=== PATIENT | female | born 1950 | race Caucasian/White ===

== ENCOUNTER 2017-06-08 15:58 | Observation (INO) ==
[2017-06-08] MEDS ORDERED: ROCEPHIN 1 GM in SODIUM CHLORIDE 50 ML IV STA ×2 (16:22→20:57)
--- NOTE | 2017-06-08 16:50 | DI ---
EXAM: Chest two view, frontal and lateral views. HISTORY: Cough. COMPARISON: 06/20/2013. FINDINGS: Heart size is normal. There is no vascular congestion. There are thin linear opacities i n the right apex which appear new from prior study. Lungs otherwise clear without pleural effusion o r pneumothorax. No acute osseous abnormality identified. Right convex lower thoracic curvature note d. Clips seen in the upper abdomen. IMPRESSION: Linear opacities in the right apex are suggestive of scarring, although follow-up in 3 months recomme nded for reassessment.
[2017-06-08] MEDS ORDERED: SODIUM CHLORIDE 500 ML IV STA (17:11)
--- NOTE | 2017-06-08 17:14 | ED.PDOC ---
General ED Provider: Dr. YARELY HERNANDEZ Chief Complaint: Arrhythmia Stated Complaint: WEAKNESS Time Seen by Physician: 16:00 (SEEN WITH STAFF AT ALL TIMES ) Mode of Arrival: Wheelchair Information Source: Patient, Nurse Exam Limitations: No limitations Primary Care Provider: BHARAT BOWMAN Nursing and Triage Documentation Reviewed and Agree: Yes (SEEN WITH RAY/ kana at all times ) Reviewed sepsis parameters & appropriate labs ordered?: Yes (NO SYNCOPE REPORTED ) System Inflammatory Response Syndrome: Not Applicable Sepsis Protocol: For patient's 13 years and over: Temp is 96.8 and below OR 101 and greater Pulse >90 BPM Resp >20/minute Acutely Altered Mental Status Are patient's symptoms suggestive of a new infection, such as: -Pneumonia -Skin, Soft Tissue -Endocarditis -UTI -Bone, Joint Infection -Implantable Device -Acute Abdominal Infection -Wound Infection -Meningitis -Blood Stream Catheter Infection -Unknown System Inflammatory Response Syndrome: Not Applicable Neurological Complaint Exam - Weakness Complaint/Exam Last Known Well: WEEK AGO Onset: Gradual Duration: 1 WEEK Symptoms Are: Still present Timing: Intermittent Episodes Lasting: Hours Initial Severity: Moderate Current Severity: None Character: Reports: Lightheaded, Weak Aggravating: Reports: None Alleviating: Reports: None Associated Signs and Symptoms: Denies: Nausea, Vomiting, Diaphoresis, Tinnitus, Chest pain, Short of air, Palpitations, Unsteady gait, GI blood loss, Visual changes, Decreased oral intake, Change in medication, Change in diet, OTC meds, Loss of balance Cardiac Risk Factors: Reports: Elevated lipids CVA Risk Factors: Reports: None JVD Present: No Carotid Bruit Present: No Nystagmus Present: No Gag Reflex Present: Yes Meningeal Signs Positive: No Focal Weakness: Present: None Focal Sensory Loss: Present: None Gait: Normal Romberg Test Positive: No Babinski Sign: Negative Left Differential Diagnoses: Dysrhythmia, Hypovolemia, GI Bleed Quality Indicators for Cardiac Chest Pain: EKG in 10min. Quality Indicators for AMI: EKG in 10min. Quality Indicator For Non-Traumatic Chest Pain/Syncope: EKG Performed Review of Systems - Review Of Systems Constitutional: Reports: Malaise, Weakness Eyes: Reports: No symptoms Ears, Nose, Mouth, Throat: Reports: No symptoms Respiratory: Reports: Cough Cardiac: Reports: Lightheadedness, Palpitations GI: Reports: No symptoms : Reports: No symptoms Musculoskeletal: Reports: No symptoms Skin: Reports: No symptoms Neurological: Reports: No symptoms Endocrine: Reports: No symptoms Hematologic/Lymphatic: Reports: No symptoms All Other Systems: Reviewed and Negative Past Medical History - Past Medical History Previously Healthy: No Endocrine: Reports: Dyslipidemia Cardiovascular: Reports: None, Hypertension Respiratory: Reports: None Hematological: Reports: None Gastrointestinal: Reports: None Genitourinary: Reports: None Neuro/Psych: Reports: None Musculoskeletal: Reports: None Cancer: Reports: None Last Menstrual Period: na - Surgical History General Surgical History: Reports: Cholecystectomy - Family History Family History: Reports: None - Social History Smoking Status: Current every day smoker Hx Substance Use: No Alcohol Screening: None - Immunizations Tetanus Shot up to Date: Yes Physical Exam - Physical Exam Appearance: Well-appearing, No pain distress, Well-nourished Eyes: MELISSA, EOMI, Conjunctiva clear ENT: Ears normal, Nose normal, Oropharynx normal Respiratory: Airway patent, Breath sounds clear, Breath sounds equal, Respirations nonlabored Cardiovascular: RRR, Pulses normal, No rub, No murmur GI/: Soft, Nontender, No masses, Bowel sounds normal, No Organomegaly Musculoskeletal: Normal strength, ROM intact, No edema, No calf tenderness Skin: Warm, Dry, Normal color Neurological: Sensation intact, Motor intact, Reflexes intact, Cranial nerves intact, Alert, Oriented Psychiatric: Affect appropriate, Mood appropriate Physician Notification - Case Discussed Physician Notified: PMD Time of Notification: 17:16 Admit To: Observation Critical Care Note - Critical Care Note Total Time (mins): 0 Course - Course Orders, Labs, Meds: Lab Review 06/08/17 06/08/17 15:38 15:38 Total Creatine Kinase 61 Troponin I 0.0100 Procalcitonin < 0.05 Orders Category Date Time Status EKG-(ED ONLY) Stat CARDIO 06/08/17 16:04 Completed Neuro Check [NEUROLOGICAL CHECKS] Q4HR CARE 06/08/17 17:11 Active BLOOD CULTURE (ED ONLY) Stat LAB 06/08/17 16:37 Received CREATINE KINASE Stat LAB 06/08/17 15:38 Completed FLU A/B MOLECULAR Stat LAB 06/08/17 16:21 Uncollected MOLECULAR GROUP A STREP Stat LAB 06/08/17 16:21 Uncollected PROCALCITONIN Stat LAB 02/16/18 15:38 Completed TROPONIN I Stat LAB 06/08/17 15:38 Completed Aspirin [Aspirin EC] MEDS 06/09/17 09:00 Ordered 81 mg PO DAILY Atorvastatin Calcium [Lipitor] MEDS 06/09/17 09:00 Ordered 20 mg PO DAILY Sodium Chloride 0.9% [Sodium Chloride] 500 ml MEDS 06/08/17 17:11 Active IV 100 mls/hr CHEST, 2 VIEWS PA & LAT Stat RADS 06/08/17 16:06 Completed Medications Generic Name Dose Route Start Last Admin Trade Name Angelo PRN Reason Stop Dose Admin Aspirin 81 mg 06/09/17 09:00 Aspirin Ec PO DAILY ADILSON Atorvastatin Calcium 20 mg 06/09/17 09:00 Lipitor PO DAILY ADILSON Sodium Chloride 500 mls @ 100 mls/hr 06/08/17 17:11 Sodium Chloride IV 06/08/17 22:10 .Q5H STA Vital Signs: Temp Pulse Resp BP Pulse Ox 06/08/17 15:59 97.7 F 72 16 157/92 H 96 Departure - Departure Time of Disposition: 17:16 (seen all labs and imaging,XRAYS DISCUSSED WITH PT' S DAUGHTER PRESENT kana /RAY ) Disposition: PLACED OBSERVATION Discharge Problem: Weakness generalized Instructions: Weakness (ED) Condition: Good Pt referred to PMD for follow-up: Yes (ADMITT) IPMP verified?: No Additional Instructions: Please call your Family Physician as soon as possible to schedule a follow-up appointment. Allergies/Adverse Reactions: Allergies sulfamethoxazole [From Bactrim] Allergy (Severe, Unverified 06/08/17 15:17) Abdominal pain trimethoprim [From Bactrim] Allergy (Severe, Unverified 06/08/17 15:17) Abdominal pain Home Medications: Ambulatory Orders Aspirin [Aspir 81] 81 mg PO DAILY 06/08/17 Atorvastatin Calcium [Lipitor] 20 mg PO DAILY 06/08/17 Calcium Carbonate [Calcium] 500 mg PO DAILY 06/08/17 Ranitidine HCl [Zantac] 150 mg PO BID 06/08/17 Disposition Discussed With: Patient, Family
[2017-06-08] MEDS ORDERED: VISTARIL INJ IM PRN (18:20)
[2017-06-08] MEDS ORDERED: ZOFRAN 4 MG/2 ML IVP STA (18:20)
[2017-06-08] MEDS ORDERED: MORPHINE 4 MG/ML VIAL IVP PRN (18:20)
[2017-06-08] MEDS ORDERED: TYLENOL PO PRN (18:20)
[2017-06-08] MEDS ORDERED: ATROPINE SULFATE PFS IVP PRN (18:20)
[2017-06-08] MEDS ORDERED: NITROSTAT SL PRN (18:20)
[2017-06-08] MEDS ORDERED: TORADOL IVP STA (18:24)
[2017-06-08] MEDS ORDERED: DECADRON 4 MG/ML SDV IM STA (18:25)
[2017-06-08] MEDS ORDERED: TRAMADOL HCL 50 MG PO PRN (18:27)
[2017-06-08 18:51] VITALS: BMI 18.2
[2017-06-08] MEDS ORDERED: ZANTAC ONE (19:59)
[2017-06-08] MEDS ORDERED: ANCEF ONE (21:04)
[2017-06-08] MEDS: SODIUM CHLORIDE 0.9%-KCL 20 MEQ 1,000 ML IV SCH (21:24)
[2017-06-08] MEDS: POTASSIUM CHLORIDE 10 MEQ VIAL-ADDITIVE ONLY IV SCH (21:25)
[2017-06-08] MEDS: K-DUR PO SCH (21:25)
[2017-06-09] MEDS: POTASSIUM CHLORIDE 10 MEQ VIAL-ADDITIVE ONLY IV SCH (07:15)
[2017-06-09] MEDS ORDERED: POTASSIUM CHLORIDE 10 MEQ VIAL-ADDITIVE ONLY 10 MEQ in SODIUM CHLORIDE 0.9%-KCL 20 MEQ ... IV SCH ×4 (07:30)
[2017-06-09] MEDS ORDERED: ASPIRIN EC PO SCH ×2 (08:00)
[2017-06-09] MEDS ORDERED: ZOFRAN 4 MG/2 ML ONE (08:42)
[2017-06-09] MEDS ORDERED: NON-FORMULARY MEDICATION (Calcium Carbonate [Calcium] 500 MG) PO SCH (09:00)
[2017-06-09] MEDS ORDERED: LIPITOR PO SCH (09:00)
[2017-06-09] MEDS: K-DUR PO SCH (09:26)
[2017-06-09] MEDS: ZOFRAN 4 MG/2 ML IVP SCH ×2 (09:28→13:43)
[2017-06-09] MEDS: SODIUM CHLORIDE 0.9%-KCL 20 MEQ 1,000 ML IV SCH (09:47)
[2017-06-09] MEDS ORDERED: ANCEF 1 GM in SODIUM CHLORIDE 100 ML IV ONE (11:00)
[2017-06-09] MEDS ORDERED: ROCEPHIN 1 GM in SODIUM CHLORIDE 50 ML IV ONE (11:00)
[2017-06-09 13:27] VITALS: BP 110/55; TEMP 98.3
--- NOTE | 2017-06-11 10:17 | ECHO2D ---
Date of Exam: 06/09/17 Ordering Physician: DR. BHARAT BOWMAN Room #: 109 Reason for Echo: WEAKNESS, ARRHYTHMIA M-Mode Normal Adult Results LV Dimensions Normal Adult Results AoV Opening excursions >1.6 >1.6 LVEDD-base- 3.5-5.8 4.6 Ao root dimensions 2.0-3.7 3.8 LVESD-base- 3.1-4.6 L. Atrium dimensions 1.9-3.8 3.9 Post. Wall thickness 0.8-1.1 0.9 IV septum (thickness) 0.7-1.2 1.0 Post. Wall excursion 0.72-1.3 NORMAL Septal motion NORMAL Systolic motion R. Ventricular cavity 1.5-2.0 NORMAL LVEF 60% 50% Paradoxical septal wall motion NORMAL 2-D : 2-D M Mode Echocardiogram was performed using apical four chamber and left parasternal long and short axis views. Mitral, tricuspid and aortic valves appear to be normal. Contractility of the left ventricle seems to be normal, so is the cavity size. Left atrial cavity size and aortic root appear to be normal. There is no pericardial effusion. There is no thrombus noted in the left ventricular or left aortic cavity. No mitral valve prolapse noted. M-MODE: MV: NORMAL AV: NORMAL TV: NORMAL PV: CHAMBER SIZE: NORMAL WALL MOTION: NORMAL PERICARDIUM: NORMAL INTERPRETATION: 1. NORMAL 2 "D" "M" MODE ECHO MTDD
--- NOTE | 2017-06-11 14:49 | HP ---
DATE OF SERVICE: 06/08/17 SUBJECTIVE: This 66-year-old female was wheeled into the emergency room by Vandana Talley as she was seen in the [facility] for having flu type of symptoms. The patient also reported as having some palpitations with shortness of breath. The patient has flu type of symptoms for the past couple of weeks. Her daughter advised her to seek medical help. She went to the [facility]. After listening to the patient's history, Vandana Talley wheeled the patient into the emergency room for further workup. The patient was investigated by the ER physician and he found the CBC, CMP, chest x-ray were all normal. Because of jesus patient's weakness, fatigue and flu type of symptoms with poor appetite, the patient was hospitalized under observation. REVIEW OF SYSTEMS: CONSTITUTIONAL: Fatigue and weakness. The patient ran fever a couple of days ago and then now subsided. No night sweats. No malaise, lethargy. No fever or chills. HEENT: Eyes: No visual changes. No eye pain. No eye discharge. ENT: No runny nose. No epistaxis. No sinus pain. No sore throat. No odynophagia. No congestion. RESPIRATORY: Mild cough, no congestion. No hemoptysis. No shortness of breath. CARDIOVASCULAR: No angina symptoms. No CHF symptoms. No atypical chest pain for CAD. Palpitations. No PND, no orthopnea. GASTROINTESTINAL: Appetite is not good for the past 2 to 3 days. No abdominal pain. No nausea or vomiting. No diarrhea or constipation. No hematemesis. No hematochezia. GENITOURINARY: No urgency. No frequency. No dysuria. No hematuria. No obstructive symptoms. No discharge. No pain. No significant abnormal bleeding. MUSCULOSKELETAL: Generalized aches and pains. NEUROLOGICAL: No headache. No neck pain. No syncope. No seizures. No dizziness. PSYCHIATRIC: Not anxious. No depression. No suicidal thoughts. No homicidal thoughts. SKIN: No rash. No lesions. No wounds. ENDOCRINE: No unexplained weight loss. No weight gain. HEMATOLOGIC/LYMPHATIC: No anemia. No purpura. No petechiae. No prolonged or excessive bleeding. No palpable lymph nodes. MEDICATIONS: Tramadol Zantac ALLERGIES: SULFAMETHOXAZOLE, TRIMETHOPRIM PAST MEDICAL HISTORY: Chronic lung disease Smoking Gastroesophageal reflux disease Generalized osteoarthritis PERSONAL/FAMILY/SOCIAL HISTORY: The patient is living by herself. She is a smoker. No alcohol abuse. She does all activity of daily living. 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 PHYSICAL EXAMINATION: GENERAL: The patient is oriented to time, place and person. Mucous membranes are dry. VITAL SIGNS: Temperature 98, pulse 80, respiratory rate 15, BP 130/70. HEENT: Head normocephalic, atraumatic. Eyes: Extraocular muscles are intact. Pupils are equal, round and reactive to light and accommodation. Ears: No lesions. Nose appeared normal. Throat: No exudate or erythema. NECK: Supple. No JVD, no carotid bruit. No lymphadenopathy or thyromegaly. LUNGS: Decreased breath sounds bilaterally. Clear to auscultation. Percussion note normal. Chest symmetrical. HEART: S1, S2, no S3. No murmurs. No cyanosis or clubbing. No ascites. Pulses: Dorsalis pedis and posterior tibial pulses +1 to +2 both sides. ABDOMEN: Soft. Nontender. Bowel sounds active. No CVA tenderness. No mass felt. EXTREMITIES: No edema. Full range of motion of all extremities, equal. NEUROLOGIC: No focal deficit. Cranial nerves II through XII are grossly intact. No headache, no double vision or headache. SKIN: Dry. Intact. Turgor - normal. LYMPHATIC: No palpable lymph nodes/no lymphedema. MUSCULOSKELETAL: Normal joints with no swelling. Muscle tone is normal. LABS: Creatinine, BUN, CBC with differential, chest x-ray all negative. EKG sinus rhythm, no acute changes. Telemetry - sinus rhythm. No arrhythmias. ASSESSMENT: 1. Flu type of symptoms with dehydration clinically 2. COPD with smoking PLAN: 1. Admit the patient 2. Give IV fluids 3. Zofran as needed 4. Continue all the home medications 5. Toradol 30 mg now and q.8hr 6. 1 cc Decadron IM 7. Telemetry 8. EKG 9. Echocardiogram in the morning 10.The patient's rapid Flu A and B negative. TIME SPENT: More than 70 minutes. Plan and coordination of the patient's care discussed in the presence of nurse. TOVA
--- NOTE | 2017-06-12 10:24 | PN ---
DATE OF SERVICE: 06/09/17 DISCHARGE NOTE SUBJECTIVE: 66 year old white female hospitalized with flu type of symptoms. The patient's color and skin turgor was poor. She has been sick with fever off and on for past couple of weeks in fact according to her she was running fever of 101 even yesterday. During the stay in the hospital the patient was given IV fluids also was given steroids and Toradol. The patient's hydration status improved and her skin turgor improved and she felt better, she wanted to go home. Her telemetry was monitored and no arrhythmias at the time of discharge. Her heart rate was 72 with a poor respiratory rate of 20 with blood pressure 129/65 with 95% saturation. She was up and about feeling a lot better. Echo was reported as normal except for enlarged RV cavity. REVIEW OF SYSTEMS: CONSTITUTIONAL: No night sweats. No fatigue, malaise, lethargy. No fever or chills. HEENT: Eyes: No visual changes. No eye pain. No eye discharge. ENT: No runny nose. No epistaxis. No sinus pain. No sore throat. No odynophagia. No congestion. RESPIRATORY: No cough, no congestion. No hemoptysis. No shortness of breath. CARDIOVASCULAR: No angina symptoms. No CHF symptoms. No atypical chest pain for CAD. No palpitations. No orthopnea. GASTROINTESTINAL: No abdominal pain. No nausea or vomiting. No diarrhea or constipation. No hematemesis. No hematochezia. GENITOURINARY: No urgency. No frequency. No dysuria. No hematuria. No obstructive symptoms. No discharge. No pain. No significant abnormal bleeding. MUSCULOSKELETAL: No musculoskeletal pain; no joint swelling. NEUROLOGICAL: No headache. No neck pain. No syncope. No seizures. No dizziness. PSYCHIATRIC: Not anxious. No depression. No suicidal thoughts. No homicidal thoughts. SKIN: No rash. No lesions. No wounds. ENDOCRINE: No unexplained weight loss. No weight gain. HEMATOLOGIC/LYMPHATIC: No anemia. No purpura. No petechiae. No prolonged or excessive bleeding. No palpable lymph nodes. PHYSICAL EXAMINATION: HEENT: Head normocephalic, atraumatic. Eyes: Extraocular muscles are intact. Pupils are equal, round and reactive to light and accommodation. Ears: No lesions. Nose appeared normal. Throat: No exudate or erythema. NECK: Supple. No JVD, no carotid bruit. No lymphadenopathy or thyromegaly. LUNGS: Clear to auscultation. Percussion note normal. Chest symmetrical. HEART: S1, S2, no S3. No murmurs. No cyanosis or clubbing. No ascites. Pulses: Dorsalis pedis and posterior tibial pulses +1 to +2 both sides. ABDOMEN: Soft. Nontender. Bowel sounds active. No CVA tenderness. No mass felt. EXTREMITIES: No edema. Full range of motion of all extremities, equal. NEUROLOGIC: No focal deficit. Cranial nerves II through XII are grossly intact. No headache, no double vision or headache. SKIN: Not dry. Intact. Turgor - normal. LYMPHATIC: No palpable lymph nodes/no lymphedema. MUSCULOSKELETAL: Normal joints with no swelling. Muscle tone is normal. LABS: Echocardiogram done which showed enlarged RV cavity otherwise normal LV contractility and normal valves. Hgb 11.2, hct 33, WBC 4,700 normal differential , creatinine 0.7, BUN 16, potassium 4.6 ASSESSMENT: 1. Flu syndrome with dehydration 2. Possibility of urinary tract infection 3. Anemia 4. Hyperglycemia from steroid effect 5. Palpitation likely from dehydration 6. Dyslipidemia 7. History of smoking with chronic lung disease PLAN: 1. Advised to quit smoking 2. Counseling for smoking done 3. PFT done report pending 4. Chronic anemia and declined colonoscopy. 5. Strongly advised to undergo pneumography on regular basis CONDITION: Stable. TIME SPENT: More than 30 minutes. Plan and coordination of the patient's care discussed in the presence of nurse. TOVA
--- NOTE | 2017-06-12 10:31 | DS ---
DATE OF SERVICE: 06/09/17 FINAL DIAGNOSIS: 1. Flu syndrome with dehydration 2. Possibility of urinary tract infection 3. Anemia 4. Hyperglycemia from steroid effect 5. Palpitation likely from dehydration 6. Dyslipidemia 7. History fo smoking with chronic lung disease DISCHARGE INSTRUCTIONS: Discharge home. Advised to quit smoking. PFT done report is pending. The patient has chronic anemia and declined colonoscopy. Strongly advised to undergo pneumonography on regular basis. No work until clearly by Dr. Ramires. Followup with Dr. aRmires in his office. MEDICATIONS AT DISCHARGE: Ultram 50mg PO three times a day PRN Lipitor 20mg PO daily Aspirin 81mg PO daily Zantac 150mg PO twice a day Calcium 500mg PO daily NEW PRESCRIPTIONS: Keflex 500mg PO Q 12 hours for 5 days Prednisone 10mg PO twice a day for 3 days. DIET INSTRUCTIONS: As tolerated. Drink plenty of fluids to avoid further dehydration. ACTIVITY: Up ambulating as much as possible. SMOKING: Counseling for smoking done. DISEASE SPECIFIC EDUCATION: Followup Smoking cessation New Medication Side effects of antibiotics. HOSPITAL COURSE: 66 year old white female hospitalized with flu type of symptoms. The patient's color and skin turgor was poor. She has been sick with fever off and on for past couple of weeks in fact according to her she was running fever of 101 even yesterday. During the stay in the hospital the patient was given IV fluids also was given steroids and Toradol. The patient's hydration status improved and her skin turgor improved and she felt better, she wanted to go home. Her telemetry was monitored and no arrhythmias at the time of discharge. Her heart rate was 72 with a poor respiratory rate of 20 with blood pressure 129/65 with 95% saturation. She was up and about feeling a lot better. Echo was reported as normal except for enlarged RV cavity. TIME SPENT: More than 60 minutes. MTDD
--- NOTE | 2017-06-12 10:41 | PN ---
06/08/17: Level 5 Observation 06/09/17: D as in discharge. MTDD
== END 2017-06-09 13:30 | disposition home or self-care (01) ==
LOC: ED 15:58 → MEDSURG A 17:40
PROVIDERS: ADMIT Internal Medicine; ATTEND Internal Medicine
DX: J11.1 Influenza due to unidentified influenza virus with other respiratory manifestations (principal); D64.9 Anemia, unspecified; R73.9 Hyperglycemia, unspecified; R00.2 Palpitations; E86.0 Dehydration; E78.5 Hyperlipidemia, unspecified; Z87.891 Personal history of nicotine dependence; J44.9 Chronic obstructive pulmonary disease, unspecified; R53.1 Weakness
CPT/HCPCS: 36415; 80053; 81001; 82150; 82550; 83690; 84145; 84439; 84443; 84484; 85007; 85025; 87040; 87086; 87804; 93005; 93010; 99285

== ENCOUNTER 2017-06-08 16:03 | Outpatient (CLI) ==
[2017-06-08 18:51] VITALS: BMI 18.2
== END 2017-06-08 16:04 | disposition home or self-care (01) ==
LOC: LAB 16:03
PROVIDERS: ATTEND Nurse Practitioner Family
DX: R53.1 Weakness (principal); R53.83 Other fatigue; R50.9 Fever, unspecified
CPT/HCPCS: 36415; 80053; 81001; 82150; 83690; 85007; 85025; 87086; 87804